=== PATIENT | female | born 1940 | race Caucasian/White ===

== ENCOUNTER 2018-07-14 12:27 | Inpatient (IN) | payer MEDICARE, OTHER ==
[~2018-07-14] VITALS: Ht 170.2 cm; Wt 81.2 kg
--- OUTSIDE RECORDS SUMMARY | 2018-07-14 12:30 | XMS REPORT | Summary of Care ---
Author Author Symone Carlisle Organization Unknown Address [facility] Phone Unavailable Care Team Providers Care Jailkeeper Name Role Phone DARRYN Blackburn, NOHEMY Unavailable Unavailable Symone Carlisle Unavailable Unavailable PER WALLACE ND, CHUY DAVID Unavailable Unavailable LUZ Torres, SAUL Unavailable Unavailable DARRYN QUIÑONEZ [facility], NOHEMY Unavailable Unavailable PER Torres, CHUY Unavailable Unavailable Delfina WALLACE, Deanna Unavailable Unavailable Unavailable Unavailable Functional Status Name Dates Details Functional status health issues are not documented Status: Name Dates Details Cognitive status health issues are not documented Status: Problems Name Dates Details Pneumonia (486, J18.9) Status: Active Lump or mass in breast (611.72, N63.0) Status: Active Bronchitis (490, J40) Status: Active Burning with urination (788.1, R30.0) Status: Active Otitis externa (380.10, H60.90) Status: Active 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, 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 Increased urinary frequency (788.41, R35.0) Status: Active Depression screening (V79.0, Z13.89) Status: Active Encounter for mini-mental status examination Status: Active Advance directive discussed with patient (V65.49, Z71.89) Status: Active Refused pneumococcal vaccination (V64.06, Z28.21) Status: Active At moderate risk for fall (V15.88, Z91.81) Status: Active Cognitive decline (294.9, R41.89) Status: Active Urinary tract infection (599.0, N39.0) Status: Active Abdominal pain, acute, epigastric (789.06, R10.13) Status: Active Early satiety (780.94, R68.81) Status: Active Helicobacter pylori ab+ (795.79, R76.8) Status: Active Acute low back pain (724.2, M54.5) Status: Active Bloating (787.3, R14.0) Status: Active Colon cancer screening (V76.51, Z12.11) Status: Active Acute dermatitis (692.9, L30.9) Status: Active Gastritis, acute (535.00, K29.00) Status: Active Weakness (780.79, R53.1) Status: Active Abdominal pain (789.00, R10.9) Status: Active Colon polyps (211.3, K63.5) Status: Active Diverticulosis of colon (562.10, K57.30) Status: Active Jaw pain (784.92, R68.84) Status: Active Xerostomia (527.7, R68.2) Status: Active Pain in a tooth or teeth (525.9, K08.89) Status: Active Teeth missing (525.10, K08.109) Status: Active Teeth decayed (521.00, K02.9) Status: Active Difficulty eating (783.3, R63.8) Status: Active History of right breast cancer (V10.3, Z85.3) Status: Active Depressive disorder (311, F32.9) Status: Active Current smoker (305.1, F17.200) Status: Active Acute bronchitis (466.0, J20.9) Status: Active Refused influenza vaccine (V64.06, Z28.21) Status: Active Breast neoplasm (239.3, D49.3) Status: Active Dysphagia (787.20, R13.10) Status: Active Medications Name Dates Details Co Q 10 CAPS Active Acidophilus TABS USE DIRECTED. * Refills: 0 Active Fish Oil CAPS 1 tab po Q day * Refills: 0 Active Lysine CAPS TAKE DIRECTED. * Refills: 0 Active Glucosamine CAPS TAKE DIRECTED. * Refills: 0 Active Vitamin D-3 CAPS TAKE DIRECTED. * Refills: 0 Active FLUoxetine HCl - 10 MG Oral Capsule TAKE 1 CAPSULE DAILY * Quantity: 90 Refills: 1 DARRYN P.A., NOHEMY * Start : 14-Aug-2016 Active Handicap Parking HANDICAP PLACARD * Quantity: 1 Refills: 0 DARRYN P.A., NOHEMY * Start : 14-Aug-2016 Active DME ROLLATOR WALKER with SEAT. * Quantity: 1 Refills: 0 DARRYN P.A., NOHEMY * Start : 30-Aug-2016 Active DME 3 IN 1 COMMODE * Quantity: 1 Refills: 0 DARRYN P.A., NOHEMY * Start : 30-Aug-2016 Active Anastrozole 1 MG Oral Tablet TAKE 1 TABLET DAILY. * Refills: 0 * Start : 11-Oct-2016 Active Ventolin HFA 108 (90 Base) MCG/ACT Inhalation Aerosol Solution INHALE ONE TO TWO PUFFS BY MOUTH EVERY 4 TO 6 HOURS NEEDED * Quantity: 1 Refills: 1 DARRYN P.A., NOHEMY * Start : 11-Jul-2017 Active 8 GM Inhaler Doxycycline Hyclate 100 MG Oral Tablet TAKE 1 TABLET DAILY DIRECTED. * Quantity: 20 Refills: 0 DARRYN P.A., NOHEMY * Start : 27-Apr-2018 Active Allergies and Adverse Reactions Name Dates Details Cephalexin Monohydrate TABS (Allergy) Status: Active Ciprofloxacin HCl TABS (Allergy) Reaction: Itching Status: Active Hydrocodone-Acetaminophen TABS (Allergy) Status: Active Levaquin TABS (Allergy) Status: Active Vicodin TABS (Allergy) Status: Denied Past Medical History Name Dates Details History of Delirium (780.09, R41.0) Status: Resolved History of Dementia (294.20, F03.90) Status: Resolved History of Multiparity (V61.5, Z64.1) Status: Resolved Personal history of malignant neoplasm of breast (V10.3, Z85.3) Status: Resolved Procedures Procedure Dates Details History of Tonsillectomy With Adenoidectomy Completed History of Hysterectomy Completed Immunization Name Dates Details Fluzone High-Dose 0.5 ML Intramuscular Suspension Prefilled Syringe Not Administered Family History Name Dates Details Family history of Adopted Comments: Family History Status: Active Social History Name Dates Details - Status: Name Dates Details Current every day smoker Smoker. current status unknown Vital Signs Date Test Result Details [id number] BP Systolic 126 mm[Hg] Status: Comments: Location: LUE; Position: Sitting BP Diastolic 61 mm[Hg] Status: Comments: Location: LUE; Position: Sitting Height 65 in Status: Weight 178.25 lb Status: Body Mass Index Calculated 29.66 kg/m2 Status: Body Surface Area Calculated 1.88 m2 Status: Temperature 97.2 f Status: Comments: Method: Temporal Respiration Rate 16 /min Status: Heart Rate 81 /min Status: Physical Findings 0 Status: Comments: Alcohol Screen - How many times in the past yr have you had 5 (for M) or 4 (for F) or 4 (for all > 65yrs) or more drinks in a day? [id number] Physical Findings 8 Status: Comments: PHQ-9 Adult Depression Screening Results Date Description Value Details Results not documented Plan of Care Name Dates Details Planned Observations Planned Goals not documented Instructions Name Dates Details Instructions not documented Encounters Appointment; NOHEMY CATES P.A. Encounter Diagnosis: Problem not documented On: 14-Aug-2016 13:30 Appointment; NOHEMY CATES P.A. Encounter Diagnosis: Problem not documented On: 16-Sep-2016 13:00 Appointment; JOE HERNANDEZ NP Encounter Diagnosis: Problem not documented On: 11-Oct-2016 15:45 Appointment; DEANNA GRAY M.D. Encounter Diagnosis: Problem not documented On: 07-Nov-2016 11:30 Appointment; NOHEMY CATES P.A. Encounter Diagnosis: Problem not documented On: 17-Dec-2016 13:00 Appointment; DEANNA GRAY M.D. Encounter Diagnosis: Problem not documented On: 31-Dec-2016 13:00 Appointment; NOHEMY CATES P.A. Encounter Diagnosis: Problem not documented On: 19-Jun-2017 16:00 Appointment; NOHEMY CATES P.A. Encounter Diagnosis: Problem not documented On: 17-Oct-2017 9:45 Appointment; NOHEMY CATES P.A. Encounter Diagnosis: Problem not documented On: 27-Apr-2018 13:30
[2018-07-14] MEDS ORDERED: METHYLPREDNISOLONE SOD SUCC 125 MG/2ML VIAL IV STA (12:46)
[2018-07-14] MEDS ORDERED: ALBUTEROL SULF 0.083% NEB SOLN 3 ML NEB NEB STA (12:46)
[2018-07-14] MEDS ORDERED: SODIUM CHLORIDE 0.9% 1000ML 1,000 ML IV STA (12:46)
[2018-07-14] MEDS ORDERED: IPRATROPIUM BROMIDE 0.02% 2.5 ML NEB NEB STA (12:46)
[2018-07-14] MEDS ORDERED: ACETAMINOPHEN/CODEINE ELIX 120-12 MG/5 ML UDC PO ONE (13:00)
[2018-07-14 13:10] LABS: BASOPHILS # (AUTO) 0.1 (0.0-0.1); BASOPHILS % 0.7 % (0.0-1.0); EOSINOPHILS # (AUTO) 0.6 (0.0-0.4); EOSINOPHILS % 6.4 % (0.0-6.0); HEMATOCRIT 45.1 % (34.2-44.1); HEMOGLOBIN 14.7 g/dL (12.0-16.0); LYMPHOCYTES # (AUTO) 1.3 (1.0-3.2); LYMPHOCYTES % 15.2 % (18.0-39.1); MEAN CORPUSCULAR HEMOGLOBIN 29.7 pg (28-32); MEAN CORPUSCULAR HGB CONC 32.6 g/dL (31-35); MEAN CORPUSCULAR VOLUME 91.1 fL (81-99); MONOCYTES % 10.9 % (4.4-11.3); NEUTROPHILS # (AUTO) 5.8 (2.1-6.9); NEUTROPHILS % 66.5 % (38.7-80.0); PLATELET COUNT 287 x10e3/uL (140-360); RED BLOOD COUNT 4.95 x10e6/uL (3.6-5.1); RED CELL DISTRIBUTION WIDTH 13.1 % (11.7-14.4)
[2018-07-14 13:23] LABS: INR 1.04; PROTHROMBIN TIME 14.5 seconds (11.9-14.5)
[2018-07-14 13:24] LABS: PARTIAL THROMBOPLASTIN TIME 35.4 seconds (23.8-35.5)
--- NOTE | 2018-07-14 13:25 | NUR ---
pt states she feels like she's breathing better post breathing treatment
--- NOTE | 2018-07-14 13:28 | Diagnostic Imaging Report ---
EXAMINATION: CHEST SINGLE (PORTABLE) COMPARISON: None FINDINGS: The patient's chin partially obscures visualization of the right lung apex. TUBES and LINES: None. LUNGS: Lungs are mildly hyperinflated. Lungs are clear. There is no evidence of pneumonia or pulmonary edema. PLEURA: No pleural effusion or pneumothorax. HEART AND MEDIASTINUM: The cardiomediastinal silhouette is unremarkable. BONES AND SOFT TISSUES: No acute osseous lesion. Soft tissues are unremarkable. UPPER ABDOMEN: No free air under the diaphragm. IMPRESSION: No acute radiographic abnormality. Signed by: Dr. Georges Blue MD on 07/14/2018 1:24 PM
[2018-07-14 13:33] LABS: ALANINE AMINOTRANSFERASE 11 IU/L (0-55); ALBUMIN/GLOBULIN RATIO 1.1 (0.8-2.0); ALKALINE PHOSPHATASE 76 IU/L (40-150); ANION GAP 15.7 mmol/L (8-16); BLOOD UREA NITROGEN 9 mg/dL (7-26); BUN/CREATININE RATIO 10 (6-25); CALCIUM 9.9 mg/dL (8.4-10.2); CARBON DIOXIDE 25 mmol/L (22-29); CHLORIDE 105 mmol/L (98-107); CREATINE KINASE 37 IU/L (29-168); CREATININE, SERUM 0.86 mg/dL (0.57-1.11); EST GLOMERULAR FILTRATION RATE > 60 ML/MIN (60-); GLUCOSE 103 mg/dL (74-118); MAGNESIUM 2.5 MG/DL (1.3-2.1); POTASSIUM 4.7 mmol/L (3.5-5.1); SODIUM 141 mmol/L (136-145)
[2018-07-14 13:54] LABS: B-TYPE NATRIURETIC PEPTIDE2 19.8 pg/mL (0-100)
[2018-07-14] MEDS: ALBUTEROL SULF 0.083% NEB SOLN 3 ML NEB NEB SCH ×3 (15:15→23:30)
[2018-07-14] MEDS ORDERED: AZITHROMYCIN 500MG/SOD CHL 0.9% 250ML BAG IV SCH (15:15)
[2018-07-14] MEDS: SODIUM CHLORIDE 0.9% 1000ML 1,000 ML IV SCH ×2 (15:29→21:13)
[2018-07-14] MEDS: AZITHROMYCIN 500MG/NS 250 ML 250 ML IV SCH (15:40)
--- OUTSIDE RECORDS SUMMARY | 2018-07-14 16:03 | XMS REPORT ---
Author Author [facility] Address Unknown Phone Unavailable Care Team Providers Care Cake Icer And Packer Name Role Phone Cory REYES Unavailable Unavailable Problems This patient has no known problems. Allergies, Adverse Reactions, Alerts This patient has no known allergies or adverse reactions. Medications This patient has no known medications. Results Test Description Test Time Test Comments Text Results Atomic Results Result Comments CHEST SINGLE (PORTABLE) 2018-07-14 13:21:00 [place] [id number] Patient Name: GANESH HUTCHINSON MR #: [id number] : 1940 Age/Sex: 77/F Req #: [id number] Adm Physician: Ordered by: SHERYL MANZANO WASHROOM ATTENDANT Report #: [id number] Location: ER Room/Bed: Procedure: [id number] DX/CHEST SINGLE (PORTABLE) Exam Date: 07/14/18 Exam Time: 1246 REPORT STATUS: Signed EXAMINATION: CHEST SINGLE (PORTABLE) COMPARISON: None FINDINGS: The patient's chin partially obscures visualization of the right lung apex. TUBES and LINES: None. LUNGS: Lungs are mildly hyperinflated. Lungs are clear. There is no evidence of pneumonia or pulmonary edema. PLEURA: No pleural effusion or pneumothorax. HEART AND MEDIASTINUM: The cardiomediastinal silhouette is unremarkable. BONES AND SOFT TISSUES: No acute osseous lesion. Soft tissues are unremarkable. UPPER ABDOMEN: No free air under the diaphragm. IMPRESSION: No acute radiographic abnormality. Signed by: Dr. Olivia Castillo MD on 07/14/2018 1:24 PM Dictated By: OLIVIA CASTILLO MD [id number] Transcribed By: RANJIT on 07/14/181323 COPY TO: SHERYL MANZANO NP
[2018-07-14 16:45] VITALS: BP 136/65
[2018-07-14] MEDS: IPRATROPIUM BROMIDE 0.02% 2.5 ML NEB NEB SCH (18:20)
[2018-07-14] MEDS: METHYLPREDNISOLONE SOD SUCC 40 MG/ML VIAL IV SCH ×2 (18:28→23:50)
[2018-07-14 18:42] VITALS: BP 134/73
[2018-07-14] MEDS ORDERED: ANASTROZOLE1 MG PO (18:58)
[2018-07-14] MEDS ORDERED: PROZAC10 MG PO (18:58)
[2018-07-14 20:00] VITALS: BP 145/67
[2018-07-15] VITALS (9 sets, daily range): BP systolic 92–168; BP diastolic 52–70
[2018-07-15] MEDS: IPRATROPIUM BROMIDE 0.02% 2.5 ML NEB NEB SCH ×3 (00:02→14:00)
[2018-07-15] MEDS: ALBUTEROL SULF 0.083% NEB SOLN 3 ML NEB NEB SCH ×5 (03:30→14:00)
[2018-07-15] MEDS: METHYLPREDNISOLONE SOD SUCC 40 MG/ML VIAL IV SCH ×3 (05:48→22:36)
[2018-07-15 05:56] LABS: BASOPHILS % 0.1 % (0.0-1.0); HEMATOCRIT 37.7 % (34.2-44.1); HEMOGLOBIN 12.3 g/dL (12.0-16.0); LYMPHOCYTES # (AUTO) 0.5 (1.0-3.2); LYMPHOCYTES % 5.3 % (18.0-39.1); MEAN CORPUSCULAR HEMOGLOBIN 29.9 pg (28-32); MEAN CORPUSCULAR HGB CONC 32.6 g/dL (31-35); MEAN CORPUSCULAR VOLUME 91.5 fL (81-99); MONOCYTES # (AUTO) 0.1 (0.2-0.8); MONOCYTES % 1.4 % (4.4-11.3); NEUTROPHILS # (AUTO) 9.5 (2.1-6.9); NEUTROPHILS % 92.6 % (38.7-80.0); PLATELET COUNT 268 x10e3/uL (140-360); RED BLOOD COUNT 4.12 x10e6/uL (3.6-5.1); RED CELL DISTRIBUTION WIDTH 13.2 % (11.7-14.4)
[2018-07-15 06:29] LABS: ANION GAP 15.9 mmol/L (8-16); BLOOD UREA NITROGEN 13 mg/dL (7-26); BUN/CREATININE RATIO 17 (6-25); CALCIUM 8.9 mg/dL (8.4-10.2); CARBON DIOXIDE 18 mmol/L (22-29); CHLORIDE 106 mmol/L (98-107); CREATININE, SERUM 0.76 mg/dL (0.57-1.11); EST GLOMERULAR FILTRATION RATE > 60 ML/MIN (60-); GLUCOSE 179 mg/dL (74-118); POTASSIUM 3.9 mmol/L (3.5-5.1); SODIUM 136 mmol/L (136-145)
--- NOTE | 2018-07-15 06:40 | Diagnostic Imaging Report ---
EXAMINATION: CHEST SINGLE (PORTABLE) INDICATION: Pneumonia. Shortness of breath. Cough. COMPARISON: 07/14/2018 FINDINGS: TUBES and LINES: None. LUNGS: Lungs are well inflated. There is mild bibasilar atelectasis. There is no evidence of pneumonia or pulmonary edema. PLEURA: No pleural effusion or pneumothorax. HEART AND MEDIASTINUM: The cardiomediastinal silhouette is unremarkable. BONES AND SOFT TISSUES: No acute osseous lesion. Soft tissues are unremarkable. UPPER ABDOMEN: No free air under the diaphragm. IMPRESSION: No acute radiographic abnormality. Signed by: DR. Jones Oscar MD on 07/15/2018 6:37 AM
--- NOTE | 2018-07-15 07:00 | NUR ---
Walking rounds done and report taken from night. Call dickson within reach.
[2018-07-15] MEDS: SODIUM CHLORIDE 0.9% 1000ML 1,000 ML IV SCH ×2 (07:15→16:13)
--- NOTE | 2018-07-15 11:23 | NUR ---
SOCIAL WORK INITIAL ASSESSMENT Rafter Cutting Machine Operator to bedside to discuss plan of care with patient/family. CM/SW role and care transitions discussed. Anticipated discharge plan discussed along with duration of care. CM/SW discussed patients right to make decisions in care. CM/SW work hours given. Patient lives: IN OWN HOUSE WITH DAUGHTER Admit/Transfer: VIA HOME POA/Emergency contact: DAUGHTER IS ALLY [phone] Current/Previous Home Health: HAD [facility] AND IF QUALIFIES WOULD LIKE TO HAVE AGAIN, SIGNED CHOICE AND FILED IN CHART PCP/Follow-up Care: PER Current/Previous DME: [facility] Other Services: IN REMISISION FROM BREAST CANCER Employment Status: RETIRED Areas of Concerns: ASKING FOR HOME OXYGEN STATES WENT TO [facility] AND WAS TOLD 3 TIMES PNEUMONIA HERE STATING EMPHYSEMA AND HOPING CAN GET AT HOME, PT IS A EVERYDAY SMOKER. Referral Needs: Education Needs: NONE IMM/ELLIS given and signed (if applicable): ELLIS Goal for discharge: RETURN HOME CM/SW left business card at the bedside with contact information. Name and number was also written on the patients whiteboard. Patient verbalized understanding of discussion. CM will follow-up with ongoing discharge and transition of care needs.
[2018-07-15] MEDS: AZITHROMYCIN 500MG/NS 250 ML 250 ML IV SCH (15:15)
[2018-07-15] MEDS ORDERED: ALBUTEROL/IPRATROPIUM 3 ML NEB NEB PRN (16:45)
[2018-07-15] MEDS ORDERED: DEXTROSE 50% SYRINGE 50 ML IV PRN ×2 (16:45)
--- NOTE | 2018-07-15 17:02 | History and Physical ---
PRIMARY CARE PROVIDER: Dr. Kalin Ortiz CHIEF COMPLAINT: Difficulty breathing and acute exacerbation of COPD. HISTORY: A 77-year-old female smoker for many years since teenager. The patient with recurrent admissions to [facility] where she usually goes, but this time the patient came here with increasing shortness of breath and wheezing for the past few days. She does have a puffer at home, inhaler, but not a nebulizer. Patient was given multiple neb treatments in the emergency room without any improvement. The patient is admitted for further treatment. PAST MEDICAL HISTORY: Right breast cancer, status post radiation and chemotherapy, COPD with recurrent acute exacerbation. She is a smoker. PAST SURGICAL HISTORY: Breast surgery. SOCIAL HISTORY: Patient is a smoker for many years. She denied alcohol usage. No recreational drugs. ALLERGIES: NO KNOWN ALLERGIES. MEDICATIONS: List will be available for review. REVIEW OF SYSTEMS: As mentioned. PHYSICAL EXAMINATION VITAL SIGNS: Temperature is 98, blood pressure 139/62, pulse rate is 90, respirations 18. GENERAL: The patient seems weak, but not in any acute distress. HEENT: Normocephalic, atraumatic and anicteric. NECK: Supple grossly. PULMONARY: Diminished breath sounds bilaterally with coarses and rhonchi. CARDIOVASCULAR: Regular rate and rhythm. ABDOMEN: Soft, nontender and nondistended. EXTREMITIES: No gross cyanosis or edema. NEUROLOGIC: No gross focal deficit. LABORATORY: Sodium is 136, potassium 3.9, chloride 106, bicarb 18, BUN is 13, creatinine 0.7, glucose 179. WBC 10.2, hemoglobin 12.3, hematocrit 37.7, and platelets is 268,000. IMAGING: Chest x-ray showed no radiographic abnormality. Lungs are with bibasilar atelectasis. IMPRESSION 1. Acute exacerbation of chronic obstructive pulmonary disease associated with acute hypoxia, cough and wheezing. 2. Possible pneumonia with acute bronchitis: Will check a computerized tomography scan of the chest. PLAN: IV antibiotics. Steroids and nebulizer treatments. Home medications resumed. Consultation with Dr. Oliver Baires. Will monitor the patient closely at this time. Job#: [id number] [place]
[2018-07-15] MEDS: CEFTRIAXONE SOD 1 GM/NS 50 ML 50 ML IV SCH (17:16)
[2018-07-15] MEDS: ENOXAPARIN SOD INJ 40 MG/0.4 ML SYR SC SCH (17:16)
--- NOTE | 2018-07-15 18:45 | NUR ---
Dr. Baires at the bedside making rounds.
--- NOTE | 2018-07-15 19:01 | NUR ---
Walking rounds done and report given to oncoming shift. Call dickson within reach.
--- NOTE | 2018-07-15 19:07 | NUR ---
RT called for stat ABG draw
--- NOTE | 2018-07-15 19:10 | NUR ---
POSITIONED PT BACK TO BED. NOTED SOB, HAS 02 N/C RUNNING 2L. DENIES PAIN. CALL LIGHT WITHIN REACH. RT HERE FOR ABD PUNCTURE AND NEB TX.
[2018-07-15] MEDS: ALBUTEROL/IPRATROPIUM 3 ML NEB NEB SCH ×2 (19:19→23:59)
[2018-07-15] MEDS: NICOTINE 7 MG PATCH TOP SCH (19:30)
[2018-07-15 19:43] LABS: ABG HCO3 19 mmol/L (23-28); ABG PCO2 35 mmHg (41-51); ABG PH 7.33 (7.31-7.41); ABG PO2 96 mmHg (80-105)
[2018-07-15] MEDS: INSULIN LISPRO 100 UNIT/1 ML 3ML VIAL SQ SCH (20:08)
--- NOTE | 2018-07-15 21:29 | Diagnostic Imaging Report ---
EXAM: CT Chest WITHOUT contrast INDICATION: Shortness of breath. Cough. COMPARISON: Chest x-ray 07/15/2018 TECHNIQUE: Chest was scanned utilizing a multidetector helical scanner from the lung apex through the level of the adrenal glands without administration of IV contrast. Absence of intravenous contrast decreases sensitivity for detection of lymphadenopathy and vascular pathology. Coronal and sagittal reformations were obtained. Routine protocol was performed. IV CONTRAST: None COMPLICATIONS: None RADIATION DOSE: Total DLP: 526.3 mGy*cm Estimated effective dose: (DLP x 0.014 x size factor) mSv CTDIvol has been reviewed. It is below the limits set by the Radiation Protocol Committee (RPC). FINDINGS: LINES/ TUBES: None. LUNGS AND AIRWAYS: Mild biapical pleural parenchymal scarring. Mild dependent atelectasis. No consolidations or edema. No fibrosis. Left lower lobe calcified granuloma. Airways are normal. PLEURA: The pleural spaces are clear. HEART AND MEDIASTINUM: The thyroid gland is normal. No mediastinal, hilar or axillary lymphadenopathy. Scattered nonspecific subcentimeter mediastinal nodes. The heart is normal in size.. There is no pericardial effusion. Main pulmonary artery measures 2.9 cm. Mild scattered atherosclerotic calcifications. UPPER ABDOMEN: Calcified granulomas in the liver and spleen. Otherwise, unremarkable. BONES: Age indeterminate compression deformity of T8 with approximately 40% loss of height. Osseous demineralization. SOFT TISSUES: Spiculated appearing 3.5 x 2.5 x 1.1 cm soft tissue density in the right breast (coronal image 37). Intramuscular 3.5 x 3.4 x 1.1 cm lipoma in the right trapezius muscle. IMPRESSION: No acute thoracic abnormalities. Spiculated appearing 3.5 cm soft tissue density in the right breast, possibly scarring from prior surgery although underlying lesion not excluded. Recommend correlation with surgical history and mammography. Signed by: DR. Jones Oscar MD on 07/15/2018 9:26 PM
--- NOTE | 2018-07-15 21:31 | Consultation ---
DATE OF CONSULTATION: PULMONARY CONSULTATION Patient of Dr. Palm. HISTORY: History of diabetes; breast cancer in 2013, treated with chemotherapy, radiation, lumpectomy. ALLERGIES: KEFLEX WHICH CAUSES A YEAST INFECTION . MEDICATIONS: Included anastrozole and fluoxetine. 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 Born in [place], [place]. FAMILY HISTORY: Positive for breast cancer. PHYSICAL EXAMINATION: GENERAL: Anxious white female, somewhat tachypneic. VITAL SIGNS: Blood pressure 129/72, respirations 30, afebrile. HEENT: Head: Normocephalic, atraumatic. Eyes: Extraocular movements intact. LUNGS: Bilateral wheezes. HEART: Regular rhythm. ABDOMEN: Nontender. EXTREMITIES: Not edematous. Radiation scar of right breast. IMPRESSION: Acute exacerbation of chronic obstructive pulmonary disease. PLAN: Cigarette smoking cessation, bronchodilators. She is currently on empiric antibiotics. There is evidence of urinary tract infection. No evidence of pneumonia at this time. CT is pending. Thank you for this kind referral. Job#: [id number]
[2018-07-16 04:37] VITALS: BP 146/72
[2018-07-16] MEDS: METHYLPREDNISOLONE SOD SUCC 40 MG/ML VIAL IV SCH ×3 (05:28→21:32)
[2018-07-16] MEDS: ALBUTEROL/IPRATROPIUM 3 ML NEB NEB SCH ×3 (07:00→18:55)
[2018-07-16] MEDS: INSULIN LISPRO 100 UNIT/1 ML 3ML VIAL SQ SCH ×4 (07:30→20:05)
[2018-07-16 08:00] VITALS: BP 164/86
[2018-07-16] MEDS: NICOTINE 7 MG PATCH TOP SCH (08:42)
[2018-07-16] MEDS: FLUOXETINE HCL 10 MG CAP PO SCH (08:50)
[2018-07-16] MEDS: ANASTROZOLE 1 MG TAB PO SCH (08:50)
--- NOTE | 2018-07-16 11:38 | Progress Note ---
DATE: July 16, 2018 MEDICINE PROGRESS NOTE I am covering for Dr. Palm. SUBJECTIVE: Patient was admitted for underlying acute exacerbation of COPD as well as pneumonia. She is currently doing much better. She still has a productive cough for which I will go ahead and order Robitussin with Codeine. OBJECTIVE VITAL SIGNS: Temperature is 96.2, pulse 82, respiratory rate 20, blood pressure 164/86, pulse ox 95% on 2 L nasal cannula. LAB FINDINGS: White count 7.3, hemoglobin 12, hematocrit 37, platelets 268. Chemistry: Sodium 136, potassium 3.9, chloride 106, bicarb 18, anion gap 14, BUN 13, creatinine 0.76, calcium 8.9. Flu was negative. MICROBIOLOGY: Urine culture positive for E. coli. Blood cultures were negative. IMAGING STUDIES: CT chest shows spiculated-appearing, 3.5-cm, soft-tissue density in the right breast possibly scarring from prior surgery, although underlying lesion cannot be excluded. PHYSICAL EXAMINATION GENERAL: Not in acute distress. Alert and oriented times 3. Cooperative on examination. HEENT: Head is normocephalic and atraumatic. Eyes: Pupils equal, round and reactive to light bilaterally. Extraocular movements intact bilaterally. NECK: Supple. Good range of motion. Throat with no evidence of any erythema or exudates in the posterior pharynx. Has poor dentition. PULMONARY: Clear to auscultation bilaterally. No wheezing. No rales. No rhonchi. No crackles appreciated. CARDIOVASCULAR: Positive S1 and S2. No murmurs, rubs or gallops appreciated. ABDOMEN: Soft, nondistended and nontender to palpation. Bowel sounds present. MUSCULOSKELETAL: Strength is 5/5 throughout. No evidence of any musculoskeletal deficit on examination. No weakness appreciated. NEUROLOGICAL: Cranial nerves II through XII are grossly intact. No evidence of any neurological deficits on exam. SKIN: Intact. Warm to touch. Good cap refill. PSYCHIATRIC: Normal affect and mood. EXTREMITIES: No edema. Good range of motion throughout. IMPRESSION 1. Acute exacerbation of chronic obstructive pulmonary disease. 2. Spiculated lung lesion. 3. Underlying acute bronchitis with probable community-acquired pneumonia. 4. Cough and congestion, productive. 5. Escherichia coli urinary tract infection. PLAN: At this time, pulmonary is following accordingly. She is on IV antibiotics. I will start Robitussin with Codeine for cough, neb treatments, steroid, antibiotics. Pulmonary is following closely. Continue same plan of care. The patient is not ready for discharge yet. Job#: [id number]
[2018-07-16 12:00] VITALS: BP 156/70
[2018-07-16] MEDS: GUAIFENESIN/CODEINE 10 ML CUP PO PRN ×2 (13:00→21:32)
--- NOTE | 2018-07-16 13:13 | NUR ---
ROOM AIR SAT=88% ON ROOM AIR FOR HOME O2 EVAL. PT UNABLE TO MALENA PFT AT THIS TIME. O2 SAT= 95% ON 2LPM NASAL CANNULA
--- NOTE | 2018-07-16 15:01 | NUR ---
Report given to DENNYS Omalley. Patient will be moved to room 210 with all belongings
[2018-07-16] MEDS: AZITHROMYCIN 500MG/NS 250 ML 250 ML IV SCH (15:18)
[2018-07-16 17:28] VITALS: BP 150/65
[2018-07-16] MEDS: CEFTRIAXONE SOD 1 GM/NS 50 ML 50 ML IV SCH (17:30)
[2018-07-16] MEDS: ENOXAPARIN SOD INJ 40 MG/0.4 ML SYR SC SCH (17:30)
[2018-07-16 20:00] VITALS: BP 165/72
[2018-07-16 20:37] VITALS: BP 165/72
[2018-07-17] VITALS (7 sets, daily range): BP systolic 138–172; BP diastolic 66–79
[2018-07-17] MEDS: ALBUTEROL/IPRATROPIUM 3 ML NEB NEB SCH ×4 (00:45→18:55)
[2018-07-17] MEDS: GUAIFENESIN/CODEINE 10 ML CUP PO PRN ×4 (01:35→20:01)
[2018-07-17] MEDS: METHYLPREDNISOLONE SOD SUCC 40 MG/ML VIAL IV SCH ×3 (05:52→21:10)
[2018-07-17 06:21] LABS: CLARITY,URINE SL CLOUDY (CLEAR); COLOR,URINE YELLOW (YELLOW); LEUKOCYTE ESTERASE ,URINE TRACE (NEGATIVE); NITRITE,URINE NEGATIVE (NEGATIVE); PROTEIN,URINE DIPSTICK NEGATIVE (NEGATIVE)
[2018-07-17 06:22] LABS: BILIRUBIN,URINE NEGATIVE (NEGATIVE); KETONES,URINE NEGATIVE (NEGATIVE); URINE UROBILINOGEN 0.2 mg/dL (0.2 - 1)
[2018-07-17 06:41] LABS: AMORPHOUS SEDIMENT,URINE FEW (FEW); BACTERIA,URINE MODERATE /HPF; EPITHELIAL CELLS,URINE MANY /LPF
[2018-07-17] MEDS: INSULIN LISPRO 100 UNIT/1 ML 3ML VIAL SQ SCH ×4 (07:30→20:01)
[2018-07-17] MEDS: NICOTINE 7 MG PATCH TOP SCH (09:00)
--- NOTE | 2018-07-17 09:14 | NUR ---
pt resting in bed. no s/s distress. sats 96% on 3lpm nc. will continue to monitor.
[2018-07-17] MEDS: FLUOXETINE HCL 10 MG CAP PO SCH (09:33)
[2018-07-17] MEDS: ANASTROZOLE 1 MG TAB PO SCH (09:33)
--- NOTE | 2018-07-17 13:27 | Progress Note ---
DATE: July 17, 2018 MEDICINE PROGRESS NOTE SUBJECTIVE: Patient reports she is still short of breath on examination. She is still receiving steroids, antibiotics and neb treatments. She is still very short of breath on examination. OBJECTIVE VITAL SIGNS: Temperature is 96.7, pulse 76, respiratory rate 20, blood pressure 155/70, pulse ox 96% on 3 L nasal cannula. The patient has home O2. LABS: CBC normal. Chemistries reviewed and stable. MICROBIOLOGY: Urine culture consistent with E. coli on IV antibiotics. Blood cultures were no growth. PHYSICAL EXAMINATION GENERAL: Not in acute distress. Alert and oriented x3. Cooperative on examination. HEENT: Head is normocephalic and atraumatic. Eyes: Pupils equal, round and reactive to light bilaterally. Extraocular movements intact bilaterally. NECK: Supple. Good range of motion. Throat with no evidence of any erythema or exudates in the posterior pharynx. Has poor dentition. PULMONARY: Clear to auscultation bilaterally. No wheezing. No rales. No rhonchi. No crackles appreciated. CARDIOVASCULAR: Positive S1 and S2. No murmurs, rubs or gallops appreciated. ABDOMEN: Soft, nondistended and nontender to palpation. Bowel sounds present. MUSCULOSKELETAL: Strength is 5/5 throughout. No evidence of any musculoskeletal deficit on examination. No weakness appreciated. NEUROLOGICAL: Cranial nerves II through XII are grossly intact. No evidence of any neurological deficits on exam. SKIN: Intact. Warm to touch. Good cap refill. PSYCHIATRIC: Normal affect and mood. EXTREMITIES: No edema. Good range of motion throughout. IMPRESSION 1. Acute exacerbation of chronic obstructive pulmonary disease. 2. Spiculated lung lesion. 3. Underlying acute bronchitis with probable community-acquired pneumonia. 4. Cough and congestion which are productive. 5. Escherichia coli urinary tract infection. PLAN: Pulmonary is following accordingly. She is on IV antibiotics. She is also on Robitussin with Codeine for cough and neb treatments. I increased the steroids to 40 mg IV q.8 h. She is not ready to be discharged today. She was still wheezing on exam. She is on IV antibiotics. Job#: [id number]
[2018-07-17] MEDS: AZITHROMYCIN 500MG/NS 250 ML 250 ML IV SCH (15:01)
[2018-07-17] MEDS: CEFTRIAXONE SOD 1 GM/NS 50 ML 50 ML IV SCH (16:25)
[2018-07-17] MEDS: ENOXAPARIN SOD INJ 40 MG/0.4 ML SYR SC SCH (16:25)
--- NOTE | 2018-07-17 19:56 | NUR ---
Received change of shift report from AM nurse. Walking rounds completed.
[2018-07-18] VITALS (7 sets, daily range): BP systolic 154–190; BP diastolic 73–86
--- NOTE | 2018-07-18 | NUR ---
Patient states she cant breath. Call RT for tx. Patient c/o feeling better.
[2018-07-18] MEDS: ACETAMINOPHEN 325 MG TAB PO PRN (00:10)
[2018-07-18] MEDS: GUAIFENESIN/CODEINE 10 ML CUP PO PRN ×4 (00:10→21:00)
[2018-07-18] MEDS: ALBUTEROL/IPRATROPIUM 3 ML NEB NEB SCH ×4 (00:20→19:03)
[2018-07-18] MEDS: METHYLPREDNISOLONE SOD SUCC 40 MG/ML VIAL IV SCH ×3 (05:42→21:33)
[2018-07-18 06:27] LABS: BASOPHILS % 0.2 % (0.0-1.0); HEMATOCRIT 36.7 % (34.2-44.1); HEMOGLOBIN 11.9 g/dL (12.0-16.0); LYMPHOCYTES # (AUTO) 1.4 (1.0-3.2); LYMPHOCYTES % 10.8 % (18.0-39.1); MEAN CORPUSCULAR HEMOGLOBIN 29.5 pg (28-32); MEAN CORPUSCULAR HGB CONC 32.4 g/dL (31-35); MEAN CORPUSCULAR VOLUME 90.8 fL (81-99); MONOCYTES # (AUTO) 0.5 (0.2-0.8); MONOCYTES % 4.3 % (4.4-11.3); NEUTROPHILS # (AUTO) 10.4 (2.1-6.9); NEUTROPHILS % 83.7 % (38.7-80.0); PLATELET COUNT 269 x10e3/uL (140-360); RED BLOOD COUNT 4.04 x10e6/uL (3.6-5.1); RED CELL DISTRIBUTION WIDTH 13.8 % (11.7-14.4)
--- NOTE | 2018-07-18 06:27 | NUR ---
Patient resting quitly with daughter at bedside.
[2018-07-18 07:01] LABS: ANION GAP 12.3 mmol/L (8-16); BLOOD UREA NITROGEN 11 mg/dL (7-26); BUN/CREATININE RATIO 16 (6-25); CALCIUM 9.1 mg/dL (8.4-10.2); CARBON DIOXIDE 28 mmol/L (22-29); CHLORIDE 99 mmol/L (98-107); CREATININE, SERUM 0.68 mg/dL (0.57-1.11); EST GLOMERULAR FILTRATION RATE > 60 ML/MIN (60-); GLUCOSE 124 mg/dL (74-118); POTASSIUM 4.3 mmol/L (3.5-5.1); SODIUM 135 mmol/L (136-145)
[2018-07-18] MEDS: INSULIN LISPRO 100 UNIT/1 ML 3ML VIAL SQ SCH ×4 (07:30→21:00)
[2018-07-18] MEDS: NICOTINE 7 MG PATCH TOP SCH (08:42)
[2018-07-18] MEDS: ANASTROZOLE 1 MG TAB PO SCH (09:59)
[2018-07-18] MEDS: FLUOXETINE HCL 10 MG CAP PO SCH (09:59)
--- NOTE | 2018-07-18 14:34 | Progress Note ---
DATE: July 18, 2018 MEDICINE PROGRESS NOTE SUBJECTIVE: Patient is doing much better today. Still breathing well. She does qualify for home O2. OBJECTIVE VITAL SIGNS: Temperature is 96.8, pulse 92, respiratory rate is 20, blood pressure is 154/73, pulse ox 97% on 3 L nasal cannula. LAB FINDINGS: Show white count 12.4, hemoglobin 11.9, hematocrit is 36.7, platelets of 269. Chemistries were found to be normal. MICROBIOLOGY: Urine culture is positive for E. coli. Blood cultures were negative. PHYSICAL EXAMINATION GENERAL: Not in acute distress. Alert and oriented x3. Cooperative on examination. HEENT: Head is normocephalic and atraumatic. Eyes: Pupils equal, round and reactive to light bilaterally. Extraocular movements intact bilaterally. NECK: Supple. Good range of motion. Throat with no evidence of any erythema or exudates in the posterior pharynx. Has poor dentition. PULMONARY: Clear to auscultation bilaterally. No wheezing. No rales. No rhonchi. No crackles appreciated. CARDIOVASCULAR: Positive S1 and S2. No murmurs, rubs or gallops appreciated. ABDOMEN: Soft, nondistended and nontender to palpation. Bowel sounds present. MUSCULOSKELETAL: Strength is 5/5 throughout. No evidence of any musculoskeletal deficit on examination. No weakness appreciated. NEUROLOGICAL: Cranial nerves II through XII are grossly intact. No evidence of any neurological deficits on exam. SKIN: Intact. Warm to touch. Good cap refill. PSYCHIATRIC: Normal affect and mood. EXTREMITIES: No edema. Good range of motion throughout. IMPRESSION 1. Acute exacerbation of chronic obstructive pulmonary disease. 2. Concern for spiculated lung lesion. 3. Underlying acute bronchitis with probable community-acquired pneumonia. 4. Cough and congestion which are productive. 5. Escherichia coli urinary tract infection. PLAN: Pulmonary is following. On IV antibiotics. UTI, she is on IV Rocephin. She is also on IV azithromycin and Rocephin. Robitussin with Codeine for coughing. Neb treatments, IV steroids. She does qualify for home O2 which we will likely arrange on Friday. Job#: [id number] ROLAND
[2018-07-18] MEDS: AZITHROMYCIN 500MG/NS 250 ML 250 ML IV SCH (15:52)
[2018-07-18] MEDS: ENOXAPARIN SOD INJ 40 MG/0.4 ML SYR SC SCH (17:45)
[2018-07-18] MEDS: CEFTRIAXONE SOD 1 GM/NS 50 ML 50 ML IV SCH (17:45)
--- NOTE | 2018-07-18 19:31 | NUR ---
Received change of shift report from AM nurse. Walking rounds completed.
--- NOTE | 2018-07-18 20:11 | NUR ---
Patient in supine/sitting position in bed. AAOx3. Denies pain at this time. IV intact to left wrist. Pt o2 at 3L. Bed down to low level. SR up x2. Bed locked in place. Patient in no distress or discomfort at this time.
[2018-07-19] VITALS (7 sets, daily range): BP systolic 140–174; BP diastolic 60–77
[2018-07-19] MEDS: ALBUTEROL/IPRATROPIUM 3 ML NEB NEB SCH ×4 (01:05→19:35)
[2018-07-19] MEDS: METHYLPREDNISOLONE SOD SUCC 40 MG/ML VIAL IV SCH ×3 (06:00→21:01)
[2018-07-19] MEDS: INSULIN LISPRO 100 UNIT/1 ML 3ML VIAL SQ SCH ×4 (07:30→20:55)
--- NOTE | 2018-07-19 08:28 | NUR ---
pt resting in bed, no c/o pain or s/s distress. will continue to monitor.
[2018-07-19] MEDS: NICOTINE 7 MG PATCH TOP SCH (09:00)
[2018-07-19] MEDS: GUAIFENESIN/CODEINE 10 ML CUP PO PRN ×3 (09:28→21:02)
[2018-07-19] MEDS: ANASTROZOLE 1 MG TAB PO SCH (09:28)
[2018-07-19] MEDS: FLUOXETINE HCL 10 MG CAP PO SCH (09:28)
[2018-07-19] MEDS: AZITHROMYCIN 500MG/NS 250 ML 250 ML IV SCH (15:57)
[2018-07-19] MEDS: ENOXAPARIN SOD INJ 40 MG/0.4 ML SYR SC SCH (15:57)
[2018-07-19] MEDS: CEFTRIAXONE SOD 1 GM/NS 50 ML 50 ML IV SCH (15:57)
--- NOTE | 2018-07-19 19:49 | NUR ---
Received change of shift report from AM nurse. Walking rounds completed.
--- NOTE | 2018-07-19 20:30 | NUR ---
Patient sitting up in bed. Requested cough meds. o2 at 2.5. IV intact to left hand with no redness or pain noted. Continue monitor.
--- NOTE | 2018-07-20 | NUR ---
Patient received cough meds and breathing tx and is resting quitly at this time. Continue monitor for changes in patients condition. Continue monitor
[2018-07-20] MEDS: ALBUTEROL/IPRATROPIUM 3 ML NEB NEB SCH ×3 (01:10→13:35)
[2018-07-20 04:00] VITALS: BP 165/72
--- NOTE | 2018-07-20 04:08 | NUR ---
Patient resting quitly.
[2018-07-20] MEDS: METHYLPREDNISOLONE SOD SUCC 40 MG/ML VIAL IV SCH ×2 (05:07→14:00)
[2018-07-20] MEDS: GUAIFENESIN/CODEINE 10 ML CUP PO PRN ×2 (05:12→09:25)
--- NOTE | 2018-07-20 07:10 | NUR ---
RCD PT AT BED PT IS ALERT AND ORIENTED PT RESTING ON BED IV PATENT FAMILY AT BED SIDE BED LOW AND LOCKED CALL LIGHT IN REACH
[2018-07-20] MEDS: INSULIN LISPRO 100 UNIT/1 ML 3ML VIAL SQ SCH ×3 (07:30→16:30)
[2018-07-20 07:43] VITALS: BP 165/74
[2018-07-20 08:00] VITALS: BP 165/74
[2018-07-20] MEDS: ANASTROZOLE 1 MG TAB PO SCH (08:45)
[2018-07-20] MEDS: FLUOXETINE HCL 10 MG CAP PO SCH (08:45)
[2018-07-20] MEDS: NICOTINE 7 MG PATCH TOP SCH (08:45)
[2018-07-20] MEDS: ACETAMINOPHEN 325 MG TAB PO PRN (09:25)
--- NOTE | 2018-07-20 10:10 | Diagnostic Imaging Report ---
EXAMINATION: CHEST SINGLE (PORTABLE) COMPARISON: Chest x-ray 07/15/2018, CT chest 07/15/2018 INDICATION: ^CHEST PAIN ^[id number] ^[id number] DISCUSSION: Frontal view of the chest obtained at 0947 hours. HEART AND MEDIASTINUM: The heart is normal in size. The aorta is ectatic but stable LINES: None. LUNGS: The lungs are diffusely hyperinflated consistent with COPD. Hazy bibasilar airspace opacities. Pulmonary vasculature is prominent but stable. PLEURA: No pleural effusion or pneumothorax. BONES AND SOFT TISSUES: No focal osseous lesion. The soft tissues are normal. IMPRESSION: 1. Pulmonary hyperinflation. Hazy opacities in the lower lung zones may represent atelectasis. Small foci of infiltrate cannot be excluded. 2. Mild cardiomegaly and stable vascular prominence. Signed by: Dr. Kashif Gagnon MD on 07/20/2018 10:06 AM
--- NOTE | 2018-07-20 10:46 | NUR ---
NOTIFIED THE CHEST XRAY REPORT TO DR FERGUSON GOT THE ORDER TO OK TO DISCHARGE
[2018-07-20 11:47] VITALS: BP 167/76
--- NOTE | 2018-07-20 14:39 | NUR ---
CM SPOKE TO PATIENT AND PATIENT DAUGHTER AT BEDSIDE REGARDING HOME OXYGEN NEEDS. PATIENT VERBALLY UNDERSTANDS WHY SHE NEEDS HOME OXYGEN AND WAS GIVEN CHOICES FOR OXYGEN COMPANIES. PATIENT AND PATIENT DAUGHTER CHOSE [facility]. CHOICE LETTER PLACED ON CHART. CLINICAL SENT TO [facility] @ [phone]. PENDING DELIVERY TO BEDSIDE PRIOR TO DISCHARGE. RN AWARE.
--- NOTE | 2018-07-20 14:43 | NUR ---
PATIENT TO BE DISCHARGED HOME WITH HOME OXYGEN FROM: [facility] Address: [address], [place] [address] O2 TO BE DELIVERED AT BEDSIDE PRIOR TO DISCHARGE. RN, PATIENT, AND PATIENT FAMILY AWARE.
[2018-07-20] MEDS ORDERED: AZITHROMYCIN250 MG PO (14:46)
[2018-07-20] MEDS ORDERED: TESSALON PERLE100 MG PO (14:47)
[2018-07-20] MEDS ORDERED: MUCINEX DM ER1 EACH PO (14:48)
[2018-07-20] MEDS ORDERED: [UNRECOGNIZED DRUG - OTHER] (14:49)
[2018-07-20] MEDS ORDERED: SYMBICORT 16010.2 GM (14:49)
[2018-07-20] MEDS ORDERED: NEBULIZER (14:50)
[2018-07-20] MEDS ORDERED: DUONEB (14:50)
[2018-07-20] MEDS: AZITHROMYCIN 500MG/NS 250 ML 250 ML IV SCH (14:54)
--- NOTE | 2018-07-20 14:54 | Discharge Summary ---
PCP: Dr. Kalin Ortiz UNDERTAKER HELPER: Dr. Oliver Baires FINAL DIAGNOSES 1. Acute exacerbation of chronic obstructive pulmonary disease. 2. Acute hypoxia. 3. Incidental finding of spiculated apparent 3.5-cm soft-tissue density in the right breast, possible scarring from previous surgery. Recommend for the patient to follow up with a mammogram. SUMMARY: Patient is a 77-year-old female. Discussed with the patient regarding incidental finding of the right breast. Other than that, the patient was having acute exacerbation of COPD. She is a smoker. This is not a new diagnosis, but it is new to her. She has recurrent episodes where she was having wheezing and shortness of breath previously. The patient is otherwise stable at this time. Home O2 is arranged. Home health is arranged as well. She is doing much better. She is tapering off the steroids. The patient will go home today. DISCHARGE MEDICATIONS: Include: 1. Resume home medications. 2. Azithromycin for 5 days. 3. Medrol Dosepak #1. 4. DuoNeb. 5. Symbicort. 6. Tessalon Perles. 7. Mucinex. Nebulizer was also given. Arranged for home health and home O2. The patient is otherwise stable. Discharged home today. All instructions were given to the patient. Also asked the patient to follow up with her breast lesion incidental finding. She needs a mammogram. She is on Arimidex. The patient is stable and discharged home today. Job#: [id number]
[2018-07-20 15:16] VITALS: BP 167/76
[2018-07-20 16:30] VITALS: BP 169/81
[2018-07-20] MEDS: ENOXAPARIN SOD INJ 40 MG/0.4 ML SYR SC SCH (16:42)
[2018-07-20] MEDS: CEFTRIAXONE SOD 1 GM/NS 50 ML 50 ML IV SCH (16:42)
--- NOTE | 2018-07-20 18:01 | NUR ---
PT WENT HOME IN SAFE CONDITION WITH HER DAUGHTER
--- NOTE | 2018-07-20 18:47 | NUR ---
PT RESTING ON BED BED SIDE REPORT GIVEN TO THE [facility] NURSE Addendum: 07/20/18 at 1849 by Clarisa Alvarez RN WRONG PT
== END 2018-07-20 17:45 | disposition home health service (06) | DRG 190 ==
LOC: ER 12:27 → ERHOLD 15:15 → IMCU 17:02 → OBSVTOIN 07-15 16:36 → MED/SURG2 07-16 15:10
PROVIDERS: ADMIT Internal Medicine; ATTEND Internal Medicine
DX: J44.0 Chronic obstructive pulmonary disease with (acute) lower respiratory infection (principal); J18.9 Pneumonia, unspecified organism; N39.0 Urinary tract infection, site not specified; J44.1 Chronic obstructive pulmonary disease with (acute) exacerbation; R09.02 Hypoxemia; B96.20 Unspecified Escherichia coli [E. coli] as the cause of diseases classified elsewhere; J20.9 Acute bronchitis, unspecified; F17.210 Nicotine dependence, cigarettes, uncomplicated; Z85.3 Personal history of malignant neoplasm of breast; R91.8 Other nonspecific abnormal finding of lung field
CPT/HCPCS: 36415; 36600; 71045; 71250; 80048; 80053; 81001; 82550; 82553; 82805; 82948; 83036; 83605; 83735; 83880; 84443; 84484; 85025; 85610; 85730; 87040; 87086; 87186; 87400; 93005; 94640; 99284; G0378; J0456; J0696; J1650; J2920; J2930; J7030